=== PATIENT | male | born 1970 ===

== ENCOUNTER 2017-12-23 06:52 | Emergency (ER) | payer OTHER ==
[~2017-12-23] VITALS: Ht 170.2 cm; Wt 76.7 kg
[~2017-12-23 06:52] MED LIST: ALOPURINOL; CATAFLAM50 MG; CATAFLAM50 MG PO; CRESTOR5 MG; LIPITOR20 MG PO; TENORMIN25 MG; ZANTAC150 MG
[2017-12-23] MEDS ORDERED: TRICOR145 MG (07:18)
[2017-12-23] MEDS ORDERED: PROTONIX40 M1 (07:18)
[2017-12-23] MEDS ORDERED: LIPIODOL10 ML (07:18)
[2017-12-23] MEDS ORDERED: ALLOPURINOL300 MG (07:18)
[2017-12-23] MEDS ORDERED: KETO10TA2 PO (10:30)
[2017-12-23] MEDS ORDERED: TAMS0.4C PO (10:30)
== END 2017-12-23 14:35 | disposition home or self-care (01) ==
LOC: ER 06:52
DX: N20.0 Calculus of kidney (principal); R10.32 Left lower quadrant pain